=== PATIENT | male | born 1985 | race Caucasian/White ===

== ENCOUNTER 2016-05-02 14:16 | Outpatient (CLI) | payer OTHER | END 2016-05-02 23:59 | disposition home or self-care (01) | LOC: WOU 14:16 | PROVIDERS: ATTEND Specialist | DX: S81.012A Laceration without foreign body, left knee, initial encounter (principal); S91.012A Laceration without foreign body, left ankle, initial encounter; V23.4XXA Motorcycle driver injured in collision with car, pick-up truck or van in traffic accident, initial encounter; Y92.410 Unspecified street and highway as the place of occurrence of the external cause; Z83.3 Family history of diabetes mellitus; F17.210 Nicotine dependence, cigarettes, uncomplicated | CPT/HCPCS: 87070-TC; A6209; A6402; A6452; G0463 ==

== ENCOUNTER 2016-05-09 13:25 | Outpatient (CLI) | payer OTHER | END 2016-05-09 23:59 | disposition home or self-care (01) | LOC: WOU 13:25 | PROVIDERS: ATTEND Specialist | DX: S81.012A Laceration without foreign body, left knee, initial encounter (principal); V23.4XXA Motorcycle driver injured in collision with car, pick-up truck or van in traffic accident, initial encounter; Y92.9 Unspecified place or not applicable; S81.012D Laceration without foreign body, left knee, subsequent encounter; S91.012D Laceration without foreign body, left ankle, subsequent encounter | CPT/HCPCS: A6209; A6402; A6452 ==

== ENCOUNTER 2016-05-16 13:16 | Outpatient (CLI) | payer OTHER | END 2016-05-16 23:59 | disposition home or self-care (01) | LOC: WOU 13:16 | PROVIDERS: ATTEND Specialist | DX: S81.012D Laceration without foreign body, left knee, subsequent encounter (principal); S91.012D Laceration without foreign body, left ankle, subsequent encounter; V29.40XD Motorcycle driver injured in collision with unspecified motor vehicles in traffic accident, subsequent encounter; Z83.3 Family history of diabetes mellitus | CPT/HCPCS: 97597; A6452 ==

== ENCOUNTER 2016-05-23 14:48 | Outpatient (CLI) | payer OTHER | END 2016-05-23 23:59 | disposition home or self-care (01) | LOC: WOU 14:48 | PROVIDERS: ATTEND Specialist | DX: S81.012D Laceration without foreign body, left knee, subsequent encounter (principal); V29.40XD Motorcycle driver injured in collision with unspecified motor vehicles in traffic accident, subsequent encounter; Z83.3 Family history of diabetes mellitus; F17.210 Nicotine dependence, cigarettes, uncomplicated | CPT/HCPCS: A6402; G0463 ==